=== PATIENT | male | born 1995 | race Caucasian/White ===

== ENCOUNTER 2020-09-05 21:59 | Emergency (ER) | payer OTHER, SELFPAY ==
[2020-09-05 22:06] VITALS: BP 120/69; PULSE 84; RESP 16; TEMP 36.9; O2SAT 97; BMI 26.5
[2020-09-05 22:31] LABS: IDNOW Serial# 9DD0AD1C; Strep A Nucleic Acid Negative (Negative)
--- NOTE | 2020-09-05 23:25 | ED.EXTPRO ---
HPI - Extremity Problem General Chief complaint: Extremity Injury, Upper Stated complaint: Sore throat Time Seen by Provider: 09/05/20 23:25 Source: patient Mode of arrival: ambulatory History of Present Illness HPI Narrative: 25-year-old male without significant past medical history presents with sore throat since Monday without associated fever, chills, nausea, vomiting, but reports headache and denies any ear pain, cough, or recent travel. Patient reports nasal congestion and rhinorrhea. Related Data Allergies Allergy/AdvReac Type Severity Reaction Status Date / Time No Known Allergies Allergy Verified 09/05/20 22:05 Review of Systems Review of Systems: Pertinent positives and negatives as stated in HPI 10 point review of systems is otherwise negative. PMFSH Past Medical History Source: nursing notes reviewed Medical History No known health problems Social History Social History Advance Directives: No Advance Directives Information Provided: No Physical Exam Vital Signs: Vital Signs: Last Vital Signs Temp 98.4 F 09/05/20 22:06 Pulse 84 09/05/20 22:06 Resp 16 09/05/20 22:06 BP 120/69 09/05/20 22:06 Pulse Ox 97 09/05/20 22:06 Body Mass Index 26.5 VITAL SIGNS: Reviewed. GENERAL: Well developed, well nourished, in no acute distress. HEAD: Normocephalic/atraumatic EYES: PERRLA, EOMI EARS: Ext canals without abnormality, TMs non-bulging and non-erythematous NOSE: Nasal congestion OROPHARYNX: no oral lesions noted, posterior pharynx clear with cobblestoning and non-erythematous without noted tonsillar enlargement/erythema/exudates NECK: Supple, no adenopathy LUNGS: Normal breath sounds. No adventitious sounds or accessory muscle use. SpO2<97> CARDIOVASCULAR: Regular rate and rhythm without noted murmurs ABDOMEN: Soft, non-tender, non-distended with bowel sounds. SKIN: Inspection of the skin reveals no rashes NEUROLOGIC: Alert and oriented x 4. Course Course Course Narrative: 25-year-old male with history and clinical presentation suggestive of pharyngitis, post nasal drip, doubt COVID-19 Review of all investigations negative for acute findings and suspect patient has postnasal drip with slight possibility of viral pharyngitis. MDM - Extremity (Nontraumatic) Lab Data Labs: Lab Results 09/05/20 Range/Units 22:15 S. pyogenes GrpA SYDNEY Negative (Negative) Discharge Plan Discharge Clinical Impression: Post-nasal drip Patient Disposition: Home, Self-Care Instructions: Postnasal Drip (DC) Additional Instructions: 1. Recommend increasing fluid hydration especially with water. 2. Recommend bedside cool mist vaporizer/humidifier for additional moisture while sleeping at night. 3. Recommend using [id number] Tylenol/ibuprofen as needed for symptom relief as well as nbry-xno-[id number] throat lozenges such as Cepacol/Sucrets 4. Follow-up with your primary care provider for additional re-evaluation and further outpatient management. 5. Recommend saline gargles (combine table salt with a half glass of warm tap water), gargle for 5 minutes, at least twice a day for 3 days. Return to the ER for acute worsening of symptoms. Referrals: Physician,None [Primary Care Provider] - 2 days
[2020-09-05] MEDS: Ibuprofen 400 MG TABLET PO (23:59)
[2020-09-05] MEDS: Acetaminophen 325 MG TABLET 975 MG PO (23:59)
[2020-09-05] MEDS: Throat Lozenge, Medicated LOZENGE 1 LOZENGE MUCOUS MEM (23:59)
== END 2020-09-06 00:44 | disposition home or self-care (01) ==
PROVIDERS: Emergency Provider Student in an Organized Health Care Education/Training Program
DX: R09.82 Postnasal drip (principal)
CPT/HCPCS: 36415; 87651; 99283; 99284